=== PATIENT | female | born 1955 | race Caucasian/White ===

== ENCOUNTER → 2017-12-11 | Outpatient (CLI) | payer OTHER ==
[~2017-12-11] MED LIST: CALCIUM + VITA1 EACH PO; CALCIUM 1,2001 EACH PO; COENZYME Q10400 MG PO; DAILY VITAMIN1 EAC3 PO; ESTRADIOL1 MG PO; FISH OIL 1,0001 EAC2 PO; LEVOTHYROXINE88 MCG PO; LOSARTAN POTASS50 MG PO; STOOL SOFTENER PO; Z ENJUVIA PO; Z.0.BYSTOLIC5 MG PO; Z.0.MACROBID 100 M10 PO; [UNRECOGNIZED DRUG - OTHER] PO
[2017-12-11 15:16] LABS: APPEARANCE,CSF CLEAR (CLEAR); COLOR,CSF COLORLESS (COLORLESS); TUBE NUMBER 1; WHITE BLOOD CELL,CSF 4 cells/uL (0-5)
[2017-12-11 15:17] LABS: TOTAL PROTEIN,CSF 40.2 mg/dL (15-40)
--- NOTE | 2017-12-14 12:53 | Diagnostic Imaging Report ---
PROCEDURE: LUMBAR PUNCTURE COMPARISON: None. INDICATIONS: Not provided. MEDICATION: None. EBL: Zero SPECIMEN:21 cc CSF FLUORO TIME:1.4 minutes. 74.3 mGy. TECHNIQUE: The procedure was explained to the patient in detail including complications. After consent was obtained, the patient was transferred to the fluoroscopy suite and asked to lie in the prone position. The skin in the lower back was prepped and draped in the usual sterile fashion. A 25G needle was used to infiltrate the skin and subcutaneous soft tissues with 1% lidocaine. Under fluoroscopic guidance, a 22 G 3.5" needle was advanced into the thecal sac at the L3/L4 level. Clear colorless CSF fluid was visualized, and 21 cc was obtained, sent to the lab for studies. The patient tolerated the procedure well without evidence of immediate complication. CONCLUSION: Successful fluoroscopic guided lumbar puncture. Dictated by: Chase Sánchez M.D. on 12/14/2017 at 13:01 Electronically approved by: Chase Sánchez M.D. on 12/14/2017 at 13:01
== END ==
LOC: DX 12:28
PROVIDERS: ATTEND Psychiatry & Neurology Clinical Neurophysiology
DX: G04.91 Myelitis, unspecified (principal)
CPT/HCPCS: 36415; 62270; 77003; 82945; 83916; 84157; 84165; 89051